=== PATIENT | female | born 1995 | race Caucasian/White ===

== ENCOUNTER 2022-07-05 17:24 | Emergency (ER) | payer MEDICAID ==
[~2022-07-05] VITALS: Ht 167.6 cm; Wt 70.3 kg
[2022-07-05] MEDS ORDERED: IV NORMAL SALINE 1000 ML BAG IV ONE (19:00)
[2022-07-05] MEDS ORDERED: HYDROMORPHONE 1 MG/1 ML DISP.SYRIN IV ONE (19:00)
[2022-07-05] MEDS ORDERED: IPRATROPIUM BROMIDE 0.5 MG/2.5 ML NEBU NEB ONE (19:00)
[2022-07-05] MEDS ORDERED: PROCHLORPERAZINE EDISYLATE 10 MG/2 ML VIAL IV ONE (19:00)
[2022-07-05] MEDS ORDERED: ALBUTEROL SULFATE 2.5 MG/3 ML NEBU NEB ONE (19:00)
--- NOTE | 2022-07-05 19:00 | NUR ---
AMANDA from [facility]
[2022-07-05] MEDS ORDERED: IPRATROPIUM BROMIDE 0.5 MG/2.5 ML NEBU ONE (19:19)
[2022-07-05] MEDS ORDERED: ALBUTEROL SULFATE 2.5 MG/3 ML NEBU ONE (19:19)
[2022-07-05 19:27] LABS: HEMATOCRIT 39.5 % (31.2-41.9); MEAN CORPUSCULAR HEMOGLOBIN 28.3 uug (24.7-32.8); MEAN CORPUSCULAR VOLUME 82.9 fL (75.5-95.3); PLATELET COUNT (AUTO) 216 K/uL (179-408)
[2022-07-05] MEDS ORDERED: HYDROMORPHONE 1 MG/1 ML DISP.SYRIN ONE (19:32)
[2022-07-05] MEDS ORDERED: PROCHLORPERAZINE EDISYLATE 10 MG/2 ML VIAL ONE (19:32)
[2022-07-05 19:33] LABS: CREATININE 0.7 mg/dL (0.6-1.3); POTASSIUM 3.6 mmol/L (3.5-5.1)
[2022-07-05 19:39] LABS: BILIRUBIN,DIRECT 0.1 mg/dL (0.0-0.2); BILIRUBIN,TOTAL 0.5 mg/dL (0.2-1.0); TOTAL PROTEIN, SERUM 7.2 g/dL (6.4-8.2)
[2022-07-05] MEDS ORDERED: ALBU6.7H9 INH (20:11)
[2022-07-05] MEDS ORDERED: HYDR-3980 PO (20:11)
[2022-07-05] MEDS ORDERED: DIPH25CA83 PO (20:11)
[2022-07-05] MEDS ORDERED: PROC10TA29 PO (20:11)
[2022-07-05] MEDS ORDERED: diphenhydrAMINE 50 MG/1 ML VIAL ONE (20:13)
[2022-07-05] MEDS ORDERED: diphenhydrAMINE 50 MG/1 ML VIAL IV ONE (20:15)
--- NOTE | 2022-07-05 20:18 | NUR ---
Patient discharged to home in stable condition. Written and verbal after care instructions given. Patient verbalizes understanding of instructions. Stressed follow up or return to ER for worsening s/s. Patient is a/ox4, NAD noted, patient is able to walk with steady gait
[2022-07-05 20:23] VITALS: BP 135/79
== END 2022-07-05 20:24 | disposition home or self-care (01) ==
LOC: ER 17:26
DX: B34.9 Viral infection, unspecified (principal); J98.01 Acute bronchospasm; R11.2 Nausea with vomiting, unspecified; Z88.0 Allergy status to penicillin
CPT/HCPCS: 99284; 96374; 71045; 96375; 80076; 80048; 85025; 84145; 87040 ×2; 36415; 94640; 83605; J1200; J0780; J7040; J1170; J3590

== ENCOUNTER 2025-06-09 12:44 | Emergency (ER) | payer MEDICAID ==
[~2025-06-09] VITALS: Ht 167.6 cm; Wt 74.8 kg
[~2025-06-09 12:44] MED LIST: ALBU6.7H9 INH; DIPH25CA83 PO; HYDR-3980 PO; PRED50TA PO; PROC-2 PO
[2025-06-09 12:48] VITALS: BP 136/59; O2SAT 98
[2025-06-09] MEDS ORDERED: ONDANSETRON 4 MG/2 ML VIAL ONE (13:05)
[2025-06-09] MEDS: IV NORMAL SALINE 1000 ML BAG IV ONE (13:12)
[2025-06-09] MEDS: ONDANSETRON 4 MG/2 ML VIAL IV ONE (13:12)
[2025-06-09 13:14] LABS: PLATELET COUNT (AUTO) 226 K/uL (179-408); RED BLOOD CELL COUNT(AUTO) 4.92 MIL/uL (3.63-4.92); RED CELL DISTRIBUTION WIDTH 12.5 % (12.3-17.7); WHITE BLOOD COUNT (AUTO) 7.7 K/uL (3.8-11.8)
[2025-06-09 13:21] LABS: CREATININE 0.6 mg/dL (0.6-1.3); SODIUM SERUM 141 mmol/L (136-145); UREA NITROGEN, BLOOD 11 mg/dL (7-18)
[2025-06-09 13:27] LABS: ASPARTATE AMINOTRANSFERASE 16 U/L (15-37); TOTAL PROTEIN, SERUM 7.8 g/dL (6.4-8.2)
[2025-06-09 13:36] LABS: PREGNANCY TEST SERUM QUAN < 1 miul/L (0-6)
[2025-06-09] MEDS ORDERED: DICY-17 PO (13:54)
[2025-06-09] MEDS ORDERED: ONDA4TAB5 PO (13:54)
[2025-06-09] MEDS ORDERED: diphenhydrAMINE 50 MG/1 ML VIAL ONE (14:37)
[2025-06-09] MEDS: diphenhydrAMINE 50 MG/1 ML VIAL IV ONE (14:43)
== END 2025-06-09 15:19 | disposition home or self-care (01) ==
LOC: ER 12:52
DX: F10.10 Alcohol abuse, uncomplicated (principal); R11.2 Nausea with vomiting, unspecified; R19.7 Diarrhea, unspecified; R10.9 Unspecified abdominal pain; R10.20 Pelvic and perineal pain unspecified side; J06.9 Acute upper respiratory infection, unspecified; Z79.52 Long term (current) use of systemic steroids; Z88.0 Allergy status to penicillin; Z88.7 Allergy status to serum and vaccine; Z60.2 Problems related to living alone; Z20.822 Contact with and (suspected) exposure to COVID-19
CPT/HCPCS: 99284; 96374; 71045; 96361; 96375; 87426; 87804 ×2; 80076; 80048; 83690; 85025; 84702; J1200; J2405; J7040; A4606; A4663